=== PATIENT | male | born 1965 | race Caucasian/White ===

== ENCOUNTER 2017-02-02 08:30 | Outpatient (RCR) | payer BC ==
[2012-06-30 12:33] VITALS: BP 117/70
== END 2017-02-02 14:23 | disposition home or self-care (01) ==
LOC: PT 08:30
DX: M54.10 Radiculopathy, site unspecified (principal); M54.2 Cervicalgia

== ENCOUNTER → 2022-09-18 | Day surgery (SDC) | payer OTHER | LOC: MSO 08:45 | DX: Z12.11 Encounter for screening for malignant neoplasm of colon (principal); D12.8 Benign neoplasm of rectum | CPT/HCPCS: 00811; J2704; J7120 ==